=== PATIENT | male | born 1995 | race Caucasian/White ===

== ENCOUNTER 2020-10-12 20:08 | Emergency (ER) | payer SELFPAY ==
[2020-10-12 20:27] LABS: HEMOGLOBIN 14.5 gm/dl (14.0-17.5); RED BLOOD COUNT 4.91 M/UL (4.20-5.50); WHITE BLOOD COUNT 8.8 K/UL (4.5-11.0)
[2020-10-12 20:48] LABS: BUN/CREATININE RATIO 9 (0-10)
[2020-10-12] MEDS ORDERED: IBUPROFEN600 MG PO (23:40)
[2020-10-12] MEDS ORDERED: ZOFRAN ODT 4 MG4 MG SL (23:40)
== END 2020-10-13 | disposition home or self-care (01) ==
LOC: ER1 20:08
PROVIDERS: Emergency Medicine
DX: S01.81XA Laceration without foreign body of other part of head, initial encounter (principal); F10.129 Alcohol abuse with intoxication, unspecified; Y90.9 Presence of alcohol in blood, level not specified; F17.200 Nicotine dependence, unspecified, uncomplicated; V86.59XA Driver of other special all-terrain or other off-road motor vehicle injured in nontraffic accident, initial encounter
CPT/HCPCS: 12052; 70450; 70486; 71045; 71260; 72125; 72170; 73562; 80053; 83605; 85025; 85610; 85730; 86850; 86900; 86901; 90471; 90715; 93005; 99285; G0480; Q9967